=== PATIENT | male | born 1980 | race Caucasian/White ===

== ENCOUNTER 2017-06-20 08:01 | Day surgery (SDC) ==
[2017-06-20] MEDS ORDERED: CORTISPORIN OTIC SUSP OT PRN (09:50)
[2017-06-20] MEDS ORDERED: NEO-SYNEPHRINE OT PRN (09:50)
[2017-06-20] MEDS ORDERED: SUBLIMAZE ONE (11:00)
[2017-06-20] MEDS ORDERED: ANECTINE ONE (11:00)
[2017-06-20] MEDS ORDERED: VERSED ONE (11:00)
[2017-06-20] MEDS ORDERED: DIPRIVAN 20 ML VIAL IVP ONE (11:00)
[2017-06-20] MEDS ORDERED: NEOSPORIN OINT 0.9 GM PACKET TP STA (11:34)
[2017-06-20] MEDS ORDERED: NEOSPORIN OINT 0.9 GM PACKET TP ONE (11:34)
[2017-06-20] MEDS ORDERED: LIDOCAINE 1%-EPI 1:100,000 20 ML MDV INJ STA (13:05)
[2017-06-22 14:42] VITALS: BP 112/67; TEMP 98.3
--- NOTE | 2017-06-25 13:57 | OP ---
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 The anterior laryngoscopy was inserted down to the area of his vocal cords and secured with a lewy james. Then using a 400mm lens on Zeiss microscope. There is a papilloma noted on the left anterior 1/3 of the true vocal cord using forceps the papilloma was removed. The left side of his neck was prepped and draped in usual manner. An incision approximately 1.5cm by 3/4cm was made on his neck and inclusion cyst was excised. Subcutaneous tissue was brought together using interrupted 4-0 Chromic suture and skin was brought together using interrupted 4-0 Nylon. Dressing was applied and the patient was taken back to the Recovery Room in satisfactory condition. LIN
== END 2017-06-20 12:20 | disposition home or self-care (01) ==
LOC: SURG 08:01
PROVIDERS: ATTEND Otolaryngology
DX: D14.1 Benign neoplasm of larynx (principal); L72.0 Epidermal cyst; R49.0 Dysphonia
CPT/HCPCS: 11422; 31536

== ENCOUNTER 2017-11-26 11:55 | Outpatient (CLI) ==
--- NOTE | 2017-11-26 14:13 | DI ---
EXAM: Two views of the chest. History: Cough. Findings: Heart size is within normal limits. 1.3 cm nodule within the right middle lobe. Question right infrahilar nodule. No appreciable pleural fluid and no pneumothorax. No acute osseous abnorma lities. Impression: Indeterminate lung nodules. Recommend further evaluation with contrast enhanced chest C T.
--- NOTE | 2017-11-26 14:30 | DI ---
EXAM: Two views of the abdomen. History: Right lower quadrant abdominal pain. Findings: Nonspecific but nonobstructive bowel gas pattern. No free intraperitoneal air. No acute osseous abnormalities. No suspicious calcifications are seen projecting over the renal shadows. Impression: No acute radiographic findings within the abdomen.
== END 2017-11-26 11:56 | disposition home or self-care (01) ==
LOC: CAR 11:55
PROVIDERS: ATTEND Nurse Practitioner Family
DX: R00.2 Palpitations (principal); R61 Generalized hyperhidrosis; R07.89 Other chest pain; R05 Cough; Z87.01 Personal history of pneumonia (recurrent); R10.31 Right lower quadrant pain; R11.2 Nausea with vomiting, unspecified
CPT/HCPCS: 36415; 80053; 82150; 83690; 85025; 93005; 93010

== ENCOUNTER 2017-12-03 09:54 | Outpatient (CLI) ==
--- NOTE | 2017-12-03 11:24 | CT ---
EXAM: CT chest with contra HISTORY: Solitary pulmonary nodule COMPARISON: Radiograph 11/26/2017 TECHNIQUE: CT chest performed with intravenous contrast. Coronal and sagittal reformatted images ob tained. FINDINGS: Thyroid and thoracic inlet appear normal. Heart normal in size. No pericardial effusion. Aorta normal in caliber. Esophagus unremarkable. Calcified mediastinal and right hilar lymph nodes , consistent with old granulomatous disease. No none no enlarged noncalcified lymph nodes identified . Visualized portion upper abdomen demonstrates no acute abnormality. No acute abnormalities of the bones. Central airway patent. No airspace consolidation. No pleural effusion. No pneumothorax. There is a calcified granuloma in the right lower lobe. There are two micronodules in the right lung on image 37 and 42 measuring up to 4 mm. IMPRESSION: 1. Calcified granuloma right lower lobe and right hilar/mediastinal granulomatous calcification, cor responding to the findings on radiograph. 2. Additional right lung micronodules measuring up to [address] chest follow-up in 12 months if patient at high risk for malignancy, such as a smoker or former smoker. Otherwise, no follow-up recommended. 3. No acute cardiopulmonary process.
== END 2017-12-03 09:55 | disposition home or self-care (01) ==
LOC: RAD 09:54
PROVIDERS: ATTEND Nurse Practitioner Family
DX: R91.1 Solitary pulmonary nodule (principal)

== ENCOUNTER 2017-12-10 06:01 | Outpatient (CLI) ==
--- NOTE | 2017-12-11 12:16 | ECHO2D ---
Date of Exam: 12/10/17 Ordering Physician: DEDRICK SHIPMAN APRN Room #: OP Reason for Echo: CHEST PAIN M-Mode Normal Adult Results LV Dimensions Normal Adult Results AoV Opening excursions >1.6 >1.6 LVEDD-base- 3.5-5.8 4.7 Ao root dimensions 2.0-3.7 3.5 LVESD-base- 3.1-4.6 L. Atrium dimensions 1.9-3.8 3.9 Post. Wall thickness 0.8-1.1 1.2 IV septum (thickness) 0.7-1.2 1.2 Post. Wall excursion 0.72-1.3 NORMAL Septal motion NORMAL Systolic motion R. Ventricular cavity 1.5-2.0 NORMAL LVEF 60% 57% Paradoxical septal wall motion NORMAL 2-D : 2-D M Mode Echocardiogram was performed using apical four chamber and left parasternal long and short axis views. Mitral, tricuspid and aortic valves appear to be normal. Contractility of the left ventricle seems to be normal, so is the cavity size. Left atrial cavity size and aortic root appear to be normal. There is no pericardial effusion. There is no thrombus noted in the left ventricular or left aortic cavity. No mitral valve prolapse noted. COLOR FLOW: SCREENING-MILD MITRAL REGURGITATION M-MODE: MV: NORMAL AV: NORMAL TV: NORMAL PV: CHAMBER SIZE: NORMAL WALL MOTION: NORMAL PERICARDIUM: NORMAL INTERPRETATION: 1. BORDERLINE LEFT VENTRICULAR HYPERTROPHY 2. NORMAL VALVES 3. NORMAL LEFT VENTRICULAR CONTRACTILITY 4. MILD MITRAL REGURGITATION MTDD
== END 2017-12-10 06:02 | disposition home or self-care (01) ==
LOC: CAR 06:01
PROVIDERS: ATTEND Nurse Practitioner Family
DX: R07.89 Other chest pain (principal); I49.40 Unspecified premature depolarization

== ENCOUNTER 2017-12-11 06:47 | Outpatient (CLI) ==
--- NOTE | 2017-12-11 10:39 | ECHOSTRESS ---
Date of Exam: 12/11/17 [facility] Reason for Echo: CHEST PAIN, STRESS TEST--NO ISCHEMIA M-Mode Normal Adult Results LV Dimensions Normal Adult Results AoV Opening excursions >1.6 LVEDD-base- 3.5-5.8 Ao root dimensions 2.0-3.7 LVESD-base- 3.1-4.6 L. Atrium dimensions 1.9-3.8 Post. Wall thickness 0.8-1.1 IV septum (thickness) 0.7-1.2 Post. Wall excursion 0.72-1.3 Septal motion Systolic motion R. Ventricular cavity 1.5-2.0 LVEF 60% Paradoxical septal wall motion 2-D: NORMAL LEFT VENTRICULAR CONTRACTILITY--RESTING AND POST EXERCISE M-MODE: MV: AV: TV: PV: CHAMBER SIZE: WALL MOTION: NORMAL LEFT VENTRICULAR CONTRACTILITY--RESTING AND POST EXERCISE PERICARDIUM: INTERPRETATION: 1. NORMAL LEFT VENTRICULAR CONTRACTILITY--RESTING AND POST EXERCISE MTDD
--- NOTE | 2017-12-11 10:47 | STRESSECHO ---
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 Smoking History: NONE Height: 74" Weight: 230 LBS Current Medications: NONE Resting EKG: SINUS RHYTHM/ NO ACUTE CHANGES/ LEFT VENTRICULAR HYPERTROPHY Target Heart Rate: 154/182 S-T SEGMENT STAGE MPH/GRADE HEART RATE BPM BLOOD PRESSURE MMHG RHYTHM +/- ELEVATION DEPRESSION SYMPTOMS AT REST 54 BPM 152/98 MMHG SR X NONE 1 1.7/10% 104 BPM 160/84 MMHG SR X NONE 2 2.5/12% 115 BPM 170/84 MMHG SR X NONE 3 3.4/14% 4 4.2/16% 5 5.0/18% Immediately After 140 BPM SR X MD STOPPED TEST Minutes Post Exercise 5:00 63 BPM 142/86 MMHG SR X NONE Minutes Post Exercise DURATION OF EXERCISE: 10:00 MAXIMUM HEART RATE REACHED: 140 BPM REASON FOR TERMINATION: MD STOPPED TEST 100% OXYGEN SATURATION WITH EXERCISE ON ROOM AIR METS 13.2 INTERPRETATION: 1. NO EVIDENCE OF ISCHEMIA BY ST-T WAVE 2. NO CHEST PAIN OR DISCOMFORT 3. BLOOD PRESSURE RESPONSE: HYPERTENSION RESTING WITH EXERCISE 4. NO ARRHYTHMIAS NORMAL LEFT VENTRICULAR CONTRACTILITY--RESTING AND POST EXERCISE MTDD
== END 2017-12-11 06:48 | disposition home or self-care (01) ==
LOC: CAR 06:47
PROVIDERS: ATTEND Nurse Practitioner Family
DX: R07.89 Other chest pain (principal); I49.40 Unspecified premature depolarization

== ENCOUNTER 2018-03-01 05:57 | Emergency (ER) ==
[2018-03-01 06:08] VITALS: BP 138/72; TEMP 97.4; BMI 29.5
[2018-03-01] MEDS ORDERED: FLEXERIL PO STA (06:17)
[2018-03-01] MEDS ORDERED: DILAUDID 1 MG/ML SYRINGE IM STA (06:17)
--- NOTE | 2018-03-01 06:19 | ED.PDOC ---
General ED Provider: Dr. PIERCE SANCHEZ Chief Complaint: Neck Pain Non-Injury Stated Complaint: Patient complaints of left shoulder blade pain radiating to the neck and left arm. Admits to heavy lifting at work. Time Seen by Physician: 06:17 Mode of Arrival: Walk-In Information Source: Patient Exam Limitations: No limitations Primary Care Provider: DEDRICK SHIPMAN Nursing and Triage Documentation Reviewed and Agree: Yes Does patient meet sepsis criteria?: No System Inflammatory Response Syndrome: Not Applicable Sepsis Protocol: For patient's 13 years and over: Temp is 96.8 and below OR 101 and greater Pulse >90 BPM Resp >20/minute Acutely Altered Mental Status Are patient's symptoms suggestive of a new infection, such as: -Pneumonia -Skin, Soft Tissue -Endocarditis -UTI -Bone, Joint Infection -Implantable Device -Acute Abdominal Infection -Wound Infection -Meningitis -Blood Stream Catheter Infection -Unknown Review of Systems - Review Of Systems Constitutional: Reports: No symptoms Eyes: Reports: No symptoms Ears, Nose, Mouth, Throat: Reports: No symptoms Respiratory: Reports: No symptoms Cardiac: Reports: No symptoms GI: Reports: No symptoms : Reports: No symptoms Musculoskeletal: Reports: Back pain, Joint pain (Left shoulder ), Muscle pain, Muscle stiffness Skin: Reports: No symptoms Neurological: Reports: No symptoms Endocrine: Reports: No symptoms Hematologic/Lymphatic: Reports: No symptoms All Other Systems: Reviewed and Negative Past Medical History - Past Medical History Previously Healthy: Yes Endocrine: Reports: None Cardiovascular: Reports: None Respiratory: Reports: None Hematological: Reports: None Gastrointestinal: Reports: None Genitourinary: Reports: None Neuro/Psych: Reports: Anxiety Musculoskeletal: Reports: None Cancer: Reports: None - Surgical History General Surgical History: Reports: None - Family History Family History: Reports: None - Social History Smoking Status: Never smoker Hx Substance Use: No Alcohol Screening: Occasionally - Immunizations Tetanus Shot up to Date: Yes Physical Exam - Physical Exam Appearance: Ill-appearing Ill-appearing: Mild Pain Distress: Severe Neck: Supple Respiratory: Airway patent, Breath sounds clear, Breath sounds equal, Respirations nonlabored Cardiovascular: RRR, Pulses normal, No rub, No murmur Musculoskeletal: Limited ROM (left arm at the shoulder. ) Skin: Warm, Dry Neurological: Sensation intact, Motor intact, Alert, Oriented Critical Care Note - Critical Care Note Total Time (mins): 0 Course - Course Vital Signs: Temp Pulse Resp BP Pulse Ox 03/01/18 05:58 97.4 F L 70 18 138/72 97 Departure - Departure Time of Disposition: 07:15 Disposition: HOME SELF-CARE Discharge Problem: Thoracic back sprain Qualifiers: Encounter type: initial encounter Qualified Code(s): S23.9XXA - Sprain of unspecified parts of thorax, initial encounter Instructions: Thoracic Back Strain (ED) Condition: Stable Pt referred to PMD for follow-up: Yes IPMP verified?: No Additional Instructions: Follow up with PCP in 3 days Rest Take medications as prescribed. Prescriptions: Hydrocodone Bit/Acetaminophen [Kramer 5-325] 1 each PO Q6HR PRN #15 tablet PRN Reason: severe pain Cyclobenzaprine HCl [Flexeril] 10 mg PO DAILY PRN #20 tablet PRN Reason: spasms Ibuprofen [Motrin] 600 mg PO Q6H PRN #30 tablet PRN Reason: Analgesia Allergies/Adverse Reactions: Allergies No Known Allergies Allergy (Verified 03/01/18 06:05) Home Medications: Ambulatory Orders Buspirone HCl 7.5 mg PO TID PRN 03/01/18 Cyclobenzaprine HCl [Flexeril] 10 mg PO DAILY PRN #20 tablet 03/01/18 Hydrocodone Bit/Acetaminophen [Kramer 5-325] 1 each PO Q6HR PRN #15 tablet Ibuprofen [Motrin] 600 mg PO Q6H PRN #30 tablet 03/01/18 Disposition Discussed With: Patient, Family
== END 2018-03-01 06:47 | disposition home or self-care (01) ==
LOC: ED 05:57
DX: S23.9XXA Sprain of unspecified parts of thorax, initial encounter (principal); X50.1XXA Overexertion from prolonged static or awkward postures, initial encounter
CPT/HCPCS: 96372; 99282

== ENCOUNTER 2018-04-01 19:22 | Emergency (ER) ==
[2018-04-01 19:25] VITALS: BP 125/87; TEMP 98.1; BMI 30.2
[2018-04-01] MEDS ORDERED: TORADOL IM STA (20:03)
--- NOTE | 2018-04-01 20:06 | ED.PDOC ---
General ED Provider: Dr. DYLON CASTILLO-ER Chief Complaint: Fever Stated Complaint: gloria had fever, nasal congestion and cough Time Seen by Physician: 19:25 Mode of Arrival: Walk-In Information Source: Patient Exam Limitations: No limitations Primary Care Provider: DEDRICK SHIPMAN Nursing and Triage Documentation Reviewed and Agree: Yes Does patient meet sepsis criteria?: No System Inflammatory Response Syndrome: Not Applicable Sepsis Protocol: For patient's 13 years and over: Temp is 96.8 and below OR 101 and greater Pulse >90 BPM Resp >20/minute Acutely Altered Mental Status Are patient's symptoms suggestive of a new infection, such as: -Pneumonia -Skin, Soft Tissue -Endocarditis -UTI -Bone, Joint Infection -Implantable Device -Acute Abdominal Infection -Wound Infection -Meningitis -Blood Stream Catheter Infection -Unknown Respiratory Complaint Exam - Respiratory Complaint/Exam Onset/Duration: 2 days Symptoms Are: Still present Timing: Constant Initial Severity: Mild Current Severity: Moderate Location: Nose Character: Reports: Productive cough Aggravating: Reports: URI Alleviating: Reports: None Associated Signs and Symptoms: Reports: Fever, URI, Nasal congestion, Sore throat. Denies: Rapid breathing, Dyspnea Related History: Reports: Similar episode History of Healthcare-Acquired Pneumonia: No Home Oxygen Use: No Recent Stress Test: No Recent Echo/LV Function: No Current Antibiotic Use: No Current Asthma Medication Use: No Respiratory Distress: None Inadequate Respiratory Effort: No Dysphagia Present: No Stridor Present: No JVD Present: No Accessory Muscle Use: No Retractions: Not Present Diminished Breath Sounds: No Sinus Tenderness: Maxillary Grunting Respirations: No Kussmaul Respirations: No Differential Diagnoses: Bronchitis, Sinusitis Review of Systems - Review Of Systems Constitutional: Reports: Chills, Fever Eyes: Reports: No symptoms Ears, Nose, Mouth, Throat: Reports: Nose discharge Respiratory: Reports: Cough Cardiac: Reports: No symptoms GI: Reports: No symptoms : Reports: No symptoms Musculoskeletal: Reports: No symptoms Skin: Reports: No symptoms Neurological: Reports: No symptoms Endocrine: Reports: No symptoms Hematologic/Lymphatic: Reports: No symptoms All Other Systems: Reviewed and Negative Past Medical History - Past Medical History Previously Healthy: Yes Endocrine: Reports: None Cardiovascular: Reports: None Respiratory: Reports: None Hematological: Reports: None Gastrointestinal: Reports: None Genitourinary: Reports: None Neuro/Psych: Reports: Anxiety Musculoskeletal: Reports: None Cancer: Reports: None - Surgical History General Surgical History: Reports: None - Family History Family History: Reports: None - Social History Smoking Status: Never smoker Hx Substance Use: No Alcohol Screening: Occasionally Physical Exam - Physical Exam Appearance: Well-appearing, No pain distress, Well-nourished Eyes: PARUL, EOMI, Conjunctiva clear ENT: Ears normal, Nose normal, Oropharynx normal, Rhinorrhea Neck: Supple Respiratory: Airway patent, Breath sounds clear, Breath sounds equal, Respirations nonlabored, Rhonchi Cardiovascular: RRR, Pulses normal, No rub, No murmur GI/: Soft, Nontender, No masses, Bowel sounds normal, No Organomegaly Musculoskeletal: Normal strength, ROM intact, No edema, No calf tenderness Skin: Warm, Dry, Normal color Neurological: Sensation intact Psychiatric: Affect appropriate, Mood appropriate Critical Care Note - Critical Care Note Total Time (mins): 0 Course - Course Orders, Labs, Meds: Lab Review 04/01/18 19:30 Influ A Molecular Assay Negative by naat Influ B Molecular Assay Negative by naat Orders Category Date Time Status FLU A/B MOLECULAR Stat LAB 04/01/18 19:30 Completed MOLECULAR GROUP A STREP Stat LAB 04/01/18 19:30 Completed Ketorolac Tromethamine [Toradol] MEDS 04/01/18 20:03 Stat 60 mg IM ONCE STA Vital Signs: Temp Pulse Resp BP Pulse Ox 04/01/18 19:22 98.1 F 83 18 125/87 94 L Departure - Departure Time of Disposition: 20:06 Disposition: HOME SELF-CARE Discharge Problem: Bronchitis Sinusitis Qualifiers: Sinusitis location: other Chronicity: acute Recurrence: not specified as recurrent Qualified Code(s): J01.80 - Other acute sinusitis Instructions: Rhinosinusitis (ED) Condition: Good Pt referred to PMD for follow-up: Yes IPMP verified?: No Additional Instructions: augmentin 875mg bid x 10 days---medrol dose pack---tessalon perles 200mg tid prn cough #30---f/u wtih pcp if not better in 72hrs Allergies/Adverse Reactions: Allergies No Known Allergies Allergy (Verified 04/01/18 19:24) Home Medications: Ambulatory Orders Buspirone HCl 7.5 mg PO TID PRN 03/01/18 Disposition Discussed With: Patient
== END 2018-04-01 20:29 | disposition home or self-care (01) ==
LOC: ED 19:22
DX: J40 Bronchitis, not specified as acute or chronic (principal); J01.80 Other acute sinusitis
CPT/HCPCS: 87502; 87651; 96372; 99283

== ENCOUNTER 2018-05-08 15:40 | Emergency (ER) ==
[2018-05-08 15:44] VITALS: BP 136/71; TEMP 99.2; BMI 29.0
[2018-05-08] MEDS: SODIUM CHLORIDE 1,000 ML IV STA (16:23)
[2018-05-08] MEDS: ZOFRAN 4 MG/2 ML IVP STA (16:23)
--- NOTE | 2018-05-08 16:37 | CT ---
EXAM: CT of the abdomen pelvis without contrast History: Abdominal pain and vomiting. Technique: Multiplanar CT images through the abdomen pelvis were obtained without the administration of IV contrast Findings: Subsegmental atelectasis is seen at the lung bases. No acute osseous abnormalities. No renal stones and no hydronephrosis. The appendix is normal. No discrete gallstones are identifie d by CT. No focal liver or splenic lesions. No peripancreatic inflammation. Adrenal glands are unr emarkable. No bowel obstruction. No free air and no ascites. No bladder wall thickening. Prostate is not enlarged. No perirectal inflammation. No inflammatory stranding. Impression: No acute intra-abdominal or pelvic process.
--- NOTE | 2018-05-08 17:23 | ED.PDOC ---
General ED Provider: Dr. DEWEY AGUILA Chief Complaint: Nausea/Vomiting Stated Complaint: NAUSEA, VOMITING , ABDOMINAL PAIN STARTED ABOUT MIDNIGHT LAST NIGHT Time Seen by Physician: 15:45 (SEEN WITH NURSE AT ALL TIMES NEGATIVE TRAUMA ) Mode of Arrival: Walk-In Information Source: Patient Exam Limitations: No limitations Primary Care Provider: DEDRICK SHIPMAN Nursing and Triage Documentation Reviewed and Agree: Yes Does patient meet sepsis criteria?: No If yes, has appropriate treatment been initiated?: No System Inflammatory Response Syndrome: Not Applicable Sepsis Protocol: For patient's 13 years and over: Temp is 96.8 and below OR 101 and greater Pulse >90 BPM Resp >20/minute Acutely Altered Mental Status Are patient's symptoms suggestive of a new infection, such as: -Pneumonia -Skin, Soft Tissue -Endocarditis -UTI -Bone, Joint Infection -Implantable Device -Acute Abdominal Infection -Wound Infection -Meningitis -Blood Stream Catheter Infection -Unknown GI Complaint Exam - Abdominal Pain Complaint/Exam Onset: Sudden Duration: 16 HOURS AGO Symptoms Are: Resolved Timing: Intermittent Initial Severity: Moderate Current Severity: None Location of Pain: Diffuse Radiates To: Denies: Chest, Back, Flank, LLQ, RLQ, Inguinal Character: Reports: Aching Aggravating: Reports: None Alleviating: Reports: Vomiting Associated Signs and Symptoms: Reports: Vomiting. Denies: Diaphoresis, Fever, Cough, Chest pain, Dizziness, Back pain, Constipation, Blood in stool, Dysuria, Urinary frequency, Decreased urine output, Decreased appetite, Discharge, Nausea , Diarrhea, Decreased activity AAA Risk Factors: Reports: None Cardiac Risk Factors: Reports: None Testicular Torsion Risk Factors: Reports: None Surgical Obstruction Risk Factors: Reports: None Related Surgical History: Reports: None Abdominal Findings: Present: None Differential Diagnoses: Appendicitis, Bowel Obstruction, Constipation, Gastroenteritis Review of Systems - Review Of Systems Constitutional: Reports: Malaise Eyes: Reports: No symptoms Ears, Nose, Mouth, Throat: Reports: No symptoms Respiratory: Reports: No symptoms Cardiac: Reports: No symptoms GI: Reports: Abdominal pain, Nausea, Vomiting : Reports: No symptoms Musculoskeletal: Reports: No symptoms Skin: Reports: No symptoms Neurological: Reports: No symptoms Endocrine: Reports: No symptoms Hematologic/Lymphatic: Reports: No symptoms All Other Systems: Reviewed and Negative Past Medical History - Past Medical History Previously Healthy: Yes Endocrine: Reports: None Cardiovascular: Reports: None Respiratory: Reports: None Hematological: Reports: None Gastrointestinal: Reports: None Genitourinary: Reports: None Neuro/Psych: Reports: Anxiety Musculoskeletal: Reports: None Cancer: Reports: None - Surgical History General Surgical History: Reports: None - Family History Family History: Reports: None - Social History Smoking Status: Never smoker Hx Substance Use: No Alcohol Screening: Occasionally Physical Exam - Physical Exam Appearance: Well-appearing, No pain distress, Well-nourished Eyes: PARUL, EOMI, Conjunctiva clear ENT: Ears normal, Nose normal, Oropharynx normal Respiratory: Airway patent, Breath sounds clear, Breath sounds equal, Respirations nonlabored Cardiovascular: RRR, Pulses normal, No rub, No murmur GI/: Soft, Nontender, No masses, Bowel sounds normal, No Organomegaly Musculoskeletal: Normal strength, ROM intact, No edema, No calf tenderness Skin: Warm, Dry, Normal color Neurological: Sensation intact, Motor intact, Reflexes intact, Cranial nerves intact, Alert, Oriented Psychiatric: Affect appropriate, Mood appropriate Interpretation - Radiology Interpretation Radiology Interpretation By: Radiologist Radiology Results: No acute changes Exam Interpreted: CT Scan Re-Evaluation - Re-Evaluation Time of Re-Evaluation: 17:24 Status: Improved Vital Signs Stable: Yes Pain Level: 0 Appearance: NAD Lungs: Clear Skin: Warm and Dry Neuro: Alert and Oriented X3 CV: RRR Additional Comments: NO VOMITING IN THE ED Critical Care Note - Critical Care Note Total Time (mins): 0 Course - Course Hematology/Chemistry: 05/08/18 16:04 05/08/18 16:04 Orders, Labs, Meds: Lab Review 05/08/18 05/08/18 05/08/18 16:04 16:04 16:04 WBC 8.06 RBC 5.36 Hgb 16.3 Hct 48.0 MCV 89.6 MCH 30.4 MCHC 34.0 RDW Coeff of Ledy 12.6 Plt Count 231 Immature Gran % (Auto) 0.2 Neut % (Auto) 86.0 Lymph % (Auto) 6.1 L [place] % (Auto) 7.4 Eos % (Auto) 0.1 Baso % (Auto) 0.2 Immature Gran # (Auto) 0.0 Neut # (Auto) 6.9 Lymph # (Auto) 0.5 L [place] # (Auto) 0.6 Eos # (Auto) 0.0 Baso # (Auto) 0.0 Sodium 136.8 Potassium 3.57 Chloride 102.9 Carbon Dioxide 22.2 Anion Gap 15.27 BUN 18.4 Creatinine 1.19 H Estimated GFR (MDRD) 68.00 BUN/Creatinine Ratio 15.46 Glucose 140.6 H Calcium 8.75 Total Bilirubin 1.11 AST 31.8 ALT 33.6 Alkaline Phosphatase 47.8 Total Protein 7.16 Albumin 4.24 Globulin 2.92 Albumin/Globulin Ratio 1.45 Influ A Molecular Assay Negative by naat Influ B Molecular Assay Negative by naat Orders Category Date Time Status CBC W/ AUTO DIFF Stat LAB 05/08/18 15:55 Ordered COMPREHENSIVE METABOLIC PANEL Stat LAB 05/08/18 15:55 Ordered FLU A/B MOLECULAR Stat LAB 05/08/18 15:59 Ordered RAPID STREP SCREEN [MOLECULAR GROUP A STREP] Stat LAB 05/08/18 15:59 Ordered URINALYSIS C & S IF INDICATED Stat LAB 05/08/18 15:55 Uncollected Ondansetron HCl/Pf [Zofran 4 mg/2 ml] MEDS 05/08/18 15:55 Discontinued 4 mg IVP ONCE STA Sodium Chloride 0.9% [Sodium Chloride] 1,000 ml MEDS 05/08/18 15:[address] ABDOMEN/PELVIS WO CONTRAST Stat RADS 05/08/18 16:01 Ordered Medications Discontinued Medications Generic Name Dose Route Start Last Admin Trade Name Freq PRN Reason Stop Dose Admin Sodium Chloride 1,000 mls @ 1,000 mls/hr 05/08/18 15:55 05/08/18 16:23 Sodium Chloride IV 05/08/18 16:54 1,000 mls/hr BOLUS STA Administration Ondansetron HCl 4 mg 05/08/18 15:55 05/08/18 16:23 Zofran 4 Mg/2 Ml IVP 05/08/18 15:56 4 mg ONCE STA Administration Vital Signs: Temp Pulse Resp BP Pulse Ox 05/08/18 15:40 99.2 F 94 H 18 136/71 94 L Departure - Departure Time of Disposition: 17:24 Disposition: HOME SELF-CARE Discharge Problem: Nausea, Vomiting Abdominal pain Qualifiers: Abdominal location: unspecified location Qualified Code(s): R10.9 - Unspecified abdominal pain Instructions: Abdominal Pain (ED) Condition: Good Pt referred to PMD for follow-up: Yes IPMP verified?: No Additional Instructions: Please call your Family Physician as soon as possible to schedule a follow-up appointment.AT THIS TIME BLOOD WORK AND C.T SCAN IS NEGATIVE COPIES OF THE REPORTS HAVE BEEN PROVIDED FOR YOU. FOLLOW INSTRUCTION SHEET IF ANYTHING CHANGES FOR WORSE PLEASE RETURN. OR CALL OR BOTH. Allergies/Adverse Reactions: Allergies No Known Allergies Allergy (Verified 05/08/18 15:44) Home Medications: Ambulatory Orders 1 [No Reported Medications] 05/08/18
== END 2018-05-08 17:30 | disposition home or self-care (01) ==
LOC: ED 15:40
DX: R11.2 Nausea with vomiting, unspecified (principal); R10.9 Unspecified abdominal pain; R53.81 Other malaise
CPT/HCPCS: 36415; 80053; 85025; 87502; 87651; 96361; 96374; 99283